=== PATIENT | male | born 1985 | race Caucasian/White ===

== ENCOUNTER 2019-11-03 20:53 | Outpatient (CLI) | payer SELFPAY | END 2019-11-03 23:59 | disposition EMS.NT | LOC: EMS 20:53 | PROVIDERS: ATTEND Surgery | DX: R09.89 Other specified symptoms and signs involving the circulatory and respiratory systems (principal); R41.82 Altered mental status, unspecified ==

== ENCOUNTER 2019-11-20 09:48 | Emergency (ER) | payer MEDICAID ==
--- NOTE | 2019-11-20 10:29 | XRAY Report ---
Reason: Trauma Procedure Date: 11/20/2019 Accession Number: [id number] / [id number] Procedure: XR - Hand 3 View RT CPT Code: Final Report FULL RESULT: EXAM: RIGHT HAND RADIOGRAPHY EXAM DATE: 11/20/2019 10:18 AM. CLINICAL HISTORY: Hand pain post trauma. COMPARISON: None. TECHNIQUE: 4 views. FINDINGS: Bones: There is a transverse fracture involving the head of the fifth metacarpal. There is mild dorsal angulation noted. Joints: Normal. No subluxations. Soft Tissues: Antithenar soft-tissue swelling noted. IMPRESSION: Transverse fracture involving the head of the fifth metacarpal with mild dorsal angulation and overlying soft tissue swelling. RADIA
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
[2019-11-20 10:43] VITALS: BP 129/83
== END 2019-11-20 10:44 | disposition home or self-care (01) ==
LOC: ED 09:48
DX: S62.396A Other fracture of fifth metacarpal bone, right hand, initial encounter for closed fracture (principal); W22.01XA Walked into wall, initial encounter; Y93.89 Activity, other specified; Y92.003 Bedroom of unspecified non-institutional (private) residence as the place of occurrence of the external cause; F17.200 Nicotine dependence, unspecified, uncomplicated
CPT/HCPCS: 29125; 99283

== ENCOUNTER 2022-05-30 09:38 | Emergency (ER) | payer MEDICAID ==
--- NOTE | 2022-05-30 09:50 | ED Physician Documentation ---
PD HPI ALTERED MENTAL STATUS - Stated complaint Stated Complaint: AMS - Chief complaint Chief Complaint: Neuro - History obtained from History obtained from: Patient - History of Present Illness Timing - onset: Yesterday Timing - duration: Days Timing - details: Gradual onset, Still present Quality / character: Confused Associated symptoms: No: Fever, Headache, Stiff neck, Cough Contributing factors: Substance abuse (history of alcoholism.) Basline status: Alert and oriented X 3, Independent Similar symptoms before: Diagnosis (has had alcohol withdrawal in the past. Not hospitalized previously per patient.) Recently seen: Emergency Dept (Yesterday at [facility], with labs done. Mag, K, and multivits scripts. no meds for withdrawal. Unclear Dx (looked up Epic everywhere and did not find pt - but he had his discharge papers with lab results).) Review of Systems Constitutional: denies: Fever Nose: denies: Rhinorrhea / runny nose, Congestion Throat: denies: Sore throat Respiratory: denies: Cough GI: reports: Nausea. denies: Abdominal Pain, Vomiting, Diarrhea Skin: denies: Rash, Lesions Neurologic: denies: Focal weakness, Numbness, Near syncope, Headache, Head injury Psychiatric: denies: Depressed, Suicidal PD PAST MEDICAL HISTORY - Past Medical History Cardiovascular: None Respiratory: None Neuro: None Endocrine/Autoimmune: None GI: Ulcers : None HEENT: None Psych: None Musculoskeletal: None Derm: None - Past Surgical History Past Surgical History: Yes Ortho: Other - Present Medications Home Medications: Ambulatory Orders Medication Instructions Recorded Confirmed Famotidine [Pepcid] 20 mg PO DAILY #20 tablet 05/30/22 LORazepam [Ativan] 1 mg PO Q6H PRN #25 tablet 05/30/22 Ondansetron Odt [Zofran] 4 mg TL Q6H PRN #10 tablet 05/30/22 - Allergies Allergies/Adverse Reactions: Allergies Allergy/AdvReac Type Severity Reaction Status Date / Time acetaminophen [From Vicodin] Allergy Itching Verified 05/30/22 09:47 amoxicillin Allergy Itching Verified 05/30/22 09:47 hydrocodone [From Vicodin] Allergy Itching Verified 05/30/22 09:47 - Social History Does the pt smoke?: Yes Smoking Status: Current every day smoker Does the pt drink ETOH?: Yes ETOH Use: Other (regular alcohol use. Detox program for a month, a few years ago. Has withdrawal symptoms if no alcohol after 1-2 days recently. ) Does the pt have substance abuse?: No - Immunizations Immunizations are current?: No Immunizations: TDAP >10years/unknown - POLST Patient has POLST: No PD ED PE NORMAL - Vitals Vital signs reviewed: Yes - General General: Alert and oriented X 3, Well developed/nourished, Other (shaky, with some tremor, some picking at the air with apparent visual hallucinations. Tachycardic. No vomiting. ) - HEENT HEENT: Pharynx benign - Neck Neck: Supple, no meningeal sign, No adenopathy - Cardiac Cardiac: No murmur. No: RRR (tachycardic) - Respiratory Respiratory: No respiratory distress, Clear bilaterally - Abdomen Abdomen: Soft, Non tender - Derm Derm: Normal color, Warm and dry - Neuro Neuro: Alert and oriented X 3, No motor deficit, Normal speech Results - Vitals Vitals: Vital Signs - 24 hr 05/30/22 05/30/22 05/30/22 09:41 11:07 13:00 Temperature 36.4 C L Heart Rate 141 H 99 112 H Respiratory 16 24 20 Rate Blood Pressure 99/83 H 130/87 H 140/105 H O2 Saturation 97 100 100 05/30/22 05/30/22 14:29 17:00 Temperature Heart Rate 93 91 Respiratory 18 21 Rate Blood Pressure 125/74 121/88 H O2 Saturation 93 100 Oxygen O2 Source Room air - Labs Labs: Laboratory Tests 05/30/22 05/30/22 05/30/22 10:39 10:39 10:39 WBC 6.7 RBC 3.68 L Hgb 12.7 L Hct 36.7 L MCV 99.7 H MCH 34.5 H MCHC 34.6 RDW 12.7 Plt Count 129 L MPV 10.5 Neut # (Auto) 4.9 Lymph # (Auto) 0.8 L [place] # (Auto) 0.9 Eos # (Auto) 0.0 Baso # (Auto) 0.0 Absolute Nucleated RBC 0.00 Nucleated RBC % 0.0 Sodium 133 L Potassium 2.8 L Chloride 89 L Carbon Dioxide 28 Anion Gap 16.0 H BUN 26 H Creatinine 0.9 Estimated GFR (MDRD) 95 Glucose 93 Calcium 10.9 H Magnesium 1.8 Total Bilirubin 1.5 H AST 142 H ALT 134 H Alkaline Phosphatase 70 Ammonia Total Protein 8.5 H Albumin 5.1 Globulin 3.4 Albumin/Globulin Ratio 1.5 Lipase 43 TSH 0.93 Urine Opiates Screen Ur Oxycodone Screen Urine Methadone Screen Ur Propoxyphene Screen Ur Barbiturates Screen Ur Tricyclics Screen Ur Phencyclidine Scrn Ur Amphetamine Screen U Methamphetamines Scrn U Benzodiazepines Scrn Urine Cocaine Screen U Cannabinoids Screen Ethyl Alcohol < 5.0 SARS-CoV-2 (PCR) 05/30/22 05/30/22 05/30/22 10:39 11:10 13:56 WBC RBC Hgb Hct MCV MCH MCHC RDW Plt Count MPV Neut # (Auto) Lymph # (Auto) [place] # (Auto) Eos # (Auto) Baso # (Auto) Absolute Nucleated RBC Nucleated RBC % Sodium Potassium Chloride Carbon Dioxide Anion Gap BUN Creatinine Estimated GFR (MDRD) Glucose Calcium Magnesium Total Bilirubin AST ALT Alkaline Phosphatase Ammonia 13.6 Total Protein Albumin Globulin Albumin/Globulin Ratio Lipase TSH Urine Opiates Screen NEGATIVE Ur Oxycodone Screen NEGATIVE Urine Methadone Screen NEGATIVE Ur Propoxyphene Screen NEGATIVE Ur Barbiturates Screen POSITIVE H Ur Tricyclics Screen NEGATIVE Ur Phencyclidine Scrn NEGATIVE Ur Amphetamine Screen NEGATIVE U Methamphetamines Scrn NEGATIVE U Benzodiazepines Scrn NEGATIVE Urine Cocaine Screen NEGATIVE U Cannabinoids Screen NEGATIVE Ethyl Alcohol SARS-CoV-2 (PCR) NOT DETECTED PD MEDICAL DECISION MAKING - ED course Complexity details: re-evaluated patient (The patient was actually having increased hallucinations and agitation and shakiness after the first doses of medication. However still seem like withdrawal. We will repeat doses.), considered differential (He appears to be in alcohol withdrawal with shakiness tachycardia and some visual hallucinations. He is still able answer questions for me though. We can treat for withdrawal. Consult social work regarding detox.), d/w patient, d/w retail consultant (fruit farmworker Billie says no beds available at [facility], but [facility] and [facility] do have beds.) ED course: The patient did subsequently become calmer after repeat medication doses for alcohol withdrawal. U tox was obtained and showed just a barbiturate which he had already received from us here in the ER. He remains somnolent at this point but good respirations and oxygenation. We will await him waking up enough to be able to talk with one of the detox centers for a phone interview. At the end of my shift, will leave care to the subsequent ER physician. Anticipated course at this point would be him awakening enough for phone interview with [facility] and hopefully facilitate transportation there. His father had been here and likely could give him a ride to that. Obviously prescriptions for withdrawal. Departure - Departure Clinical Impression: Alcohol withdrawal delirium, acute, hyperactive, Alcoholism Condition: Stable Record reviewed to determine appropriate education?: Yes Prescriptions: LORazepam [Ativan] 1 mg PO Q6H PRN #25 tablet PRN Reason: Alcohol Withdrawal Famotidine [Pepcid] 20 mg PO DAILY #20 tablet Ondansetron Odt [Zofran] 4 mg TL Q6H PRN #10 tablet PRN Reason: Nausea / Vomiting
[2022-05-30] MEDS ORDERED: PHENobarbital 65 MG/ML VIAL IV STA (10:16)
[2022-05-30] MEDS ORDERED: SODIUM CHLORIDE 0.9% 1,000 ML IV STA ×2 (10:16→11:37)
[2022-05-30] MEDS ORDERED: MAGNESIUM SULFATE 2 GRAM 2 GM/50 ML BAG IV ONE (10:17)
[2022-05-30] MEDS ORDERED: POTASSIUM CHLOR 10 MEQ/100 ML 10 MEQ/100 ML BAG IV STA (10:17)
[2022-05-30 10:50] LABS: BASOPHILS % (AUTO) 0.4 %; EOSINOPHILS % (AUTO) 0.3 %; HCT - HEMATOCRIT 36.7 % (42.0-52.0); HGB - HEMOGLOBIN 12.7 g/dL (14.0-18.0); LYMPHOCYTES # (AUTO) 0.8 10^3/uL (1.5-3.5); LYMPHOCYTES % (AUTO) 11.4 %; MEAN CORPUSCULAR HEMOGLOBIN 34.5 pg (27.0-31.0); MEAN CORPUSCULAR HGB CONC 34.6 g/dL (32.0-36.0); MEAN CORPUSCULAR VOLUME 99.7 fL (80.0-94.0); MEAN PLATELET VOLUME 10.5 fL (7.4-11.4); MONOCYTES # (AUTO) 0.9 10^3/uL (0.0-1.0); MONOCYTES % (AUTO) 13.9 %; NEUTROPHILS # (AUTO) 4.9 10^3/uL (1.5-6.6); NEUTROPHILS % (AUTO) 73.6 %; PLT - PLATELET COUNT 129 10^3/uL (130-450); RED BLOOD COUNT 3.68 10^6/uL (4.70-6.10); RED CELL DISTRIBUTION WIDTH 12.7 % (12.0-15.0); WHITE BLOOD COUNT 6.7 x10^3/uL (4.8-10.8)
[2022-05-30 11:02] LABS: ALBUMIN 5.1 g/dL (3.2-5.5); ALBUMIN/GLOBULIN RATIO 1.5 (1.0-2.2); ALKALINE PHOSPHATASE 70 IU/L (42-121); ALT ALANINE AMINOTRANSFERASE 134 IU/L (10-60); AST ASPARTATE AMINOTRANSFERASE 142 IU/L (10-42); BILIRUBIN,TOTAL 1.5 mg/dL (0.2-1.0); BUN - BLOOD UREA NITROGEN 26 mg/dL (6-20); CALCIUM 10.9 mg/dL (8.5-10.3); CARBON DIOXIDE - CO2 28 mmol/L (21-32); CHLORIDE 89 mmol/L (101-111); CREATININE 0.9 mg/dL (0.6-1.2); ETOH - ETHANOL < 5.0 mg/dL; GFR - MDRD 95 (>89); GLUCOSE 93 mg/dL (70-100); LIPASE 43 U/L (22-51); MAGNESIUM 1.8 mg/dL (1.7-2.8); POTASSIUM 2.8 mmol/L (3.5-5.0); SODIUM 133 mmol/L (135-145); TOTAL PROTEIN 8.5 g/dL (6.7-8.2)
[2022-05-30] MEDS ORDERED: THIAMINE INJ 100 MG in SODIUM CHLORIDE 0.9% 50 ML IV STA (11:38)
[2022-05-30] MEDS ORDERED: LORazepam 2 MG/ML VIAL IVP STA ×3 (11:38→12:34)
[2022-05-30] MEDS ORDERED: DROPERIDOL 5 MG/2 ML VIAL IVP STA (12:50)
[2022-05-30] MEDS ORDERED: diphenhydrAMINE INJ 50 MG/ML VIAL IVP STA (12:51)
[2022-05-30 14:06] LABS: MUDS CUTOFF CONCENTRATIONS CUTOFF CONC BELOW:
--- NOTE | 2022-05-30 14:10 | ED Physician Documentation ---
Restraint [id number] - Immediate Situation Face to Face Evaluation Date: 05/30/22 Face to Face Evaluation Time: 14:08 Restraint Type: Soft extremity - Patient's Reaction & Behaviors Other: Disruption of therapy - Behavioral Condition Attitude: Open Behavior: Agitated Orientation: Person Mood: Anxious - Evaluation Review of Systems: see ED note Pertinent History/Illicit Drugs/Medications/Results: alcohol withdrawal with agitation and hallucinations - Plan Need to Continue or Terminate Violent or Chemical Restraint: until medications are able to calm patient/decrease withdrawal.
[2022-05-30 14:24] LABS: AMPHETAMINE SCREEN,URINE NEGATIVE (NEGATIVE); BARBITURATE SCREEN,UR POSITIVE (NEGATIVE); BENZODIAZEPINES SCREEN, URINE NEGATIVE (NEGATIVE); COCAINE SCREEN URINE NEGATIVE (NEGATIVE); METHADONE SCREEN, URINE NEGATIVE (NEGATIVE); METHAMPHETAMINES SCREEN, URINE NEGATIVE (NEGATIVE); OPIATE SCREEN, URINE NEGATIVE (NEGATIVE); OXYCODONE SCREEN, URINE NEGATIVE (NEGATIVE); PROPOXYPHENE SCREEN, URINE NEGATIVE (NEGATIVE); THC CANNABINOID SCREEN, URINE NEGATIVE (NEGATIVE); TRICYCLIC ANTIDEPRESSANT,URINE NEGATIVE (NEGATIVE)
[2022-05-31 04:04] VITALS: BP 135/71
--- NOTE | 2022-05-31 08:42 | ED Physician Documentation ---
ED Addendum - Addendum Addendum: 05/31/22 08:39 I received sign out from Dr. Chaidez, who had received sign out from Dr. Javier. Please see Dr. Javier's note for detailed H+P. Late in my shift, patient became awake and alert. He is angry though not combative or uncooperative. He insists on being discharged. He denies SI/HI. He denies AH/VH and does not appear to be responding to any internal stimuli such as AH/VH. I asked him if he is interested in pursuing detox and he strongly refuses this. I provided several options in his discharge sheets along with contact phone numbers.
== END 2022-05-31 04:10 | disposition home or self-care (01) ==
LOC: ED 09:38
DX: F10.231 Alcohol dependence with withdrawal delirium (principal); F10.251 Alcohol dependence with alcohol-induced psychotic disorder with hallucinations; R11.0 Nausea; R25.1 Tremor, unspecified; R00.0 Tachycardia, unspecified; F17.200 Nicotine dependence, unspecified, uncomplicated
CPT/HCPCS: 36415; 80053; 80306; 80320; 82140; 83690; 83735; 84443; 85025; 87635; 96365; 96367; 96375; 96376; 99283; J1200; J2060; J3411; J7040

== ENCOUNTER 2022-09-09 09:15 | Emergency (ER) | payer MEDICAID ==
--- NOTE | 2022-09-09 09:35 | ED Physician Documentation ---
PD HPI ABD PAIN - Stated complaint Stated Complaint: L SIDE BACK PX/NAUSEA - Chief complaint Chief Complaint: Abd Pain - History obtained from History obtained from: Patient - History of Present Illness Timing - onset: Yesterday Timing - duration: Days (1) Timing - details: Gradual onset, Still present (significantly worse today) Quality: Cramping, Aching, Pain Location: LUQ Radiation: Left flank Improved by: Laying still. No: Vomiting Worsened by: Eating Associated symptoms: Nausea, Vomiting. No: Fever, Diarrhea, Constipation, Melena Similar symptoms before: Has not had sx before Review of Systems Constitutional: denies: Fever, Chills Nose: denies: Rhinorrhea / runny nose, Congestion Throat: denies: Sore throat Respiratory: denies: Cough GI: reports: Abdominal Pain, Nausea, Vomiting. denies: Constipation, Diarrhea, Bloody / black stool Neurologic: reports: Generalized weakness. denies: Altered mental status PD PAST MEDICAL HISTORY - Past Medical History Cardiovascular: None Respiratory: None Neuro: None Endocrine/Autoimmune: None GI: Ulcers : None HEENT: None Psych: None Musculoskeletal: None Derm: None - Past Surgical History Past Surgical History: Yes Ortho: Other - Present Medications Home Medications: Ambulatory Orders Medication Instructions Recorded Confirmed Famotidine [Pepcid] 20 mg PO DAILY #20 tablet 05/30/22 LORazepam [Ativan] 1 mg PO Q6H PRN #25 tablet 05/30/22 Ondansetron Odt [Zofran] 4 mg TL Q6H PRN #10 tablet 05/30/22 LORazepam [Ativan] 1 mg PO Q6H PRN #25 tablet 09/09/22 Ondansetron Odt [Zofran] 4 mg TL Q6H PRN #10 tablet 09/09/22 Oxycodone HCl/Acetaminophen 1 each PO Q6H PRN #15 tablet 09/09/22 [Percocet 5-325 mg Tablet] cephALEXin [Keflex] 500 mg PO TID #15 cap 09/09/22 metroNIDAZOLE [Flagyl] 250 mg PO TID 5 Days #15 tablet 09/09/22 - Allergies Allergies/Adverse Reactions: Allergies Allergy/AdvReac Type Severity Reaction Status Date / Time acetaminophen [From Vicodin] Allergy Itching Verified 09/09/22 09:27 amoxicillin Allergy Itching Verified 09/09/22 09:27 hydrocodone [From Vicodin] Allergy Itching Verified 09/09/22 09:27 - Living Situation Living Arrangement: reports: At home - Social History Does the pt smoke?: Yes Smoking Status: Current every day smoker Does the pt drink ETOH?: Yes ETOH Use: Other (daily moderate amount) Does the pt have substance abuse?: No - Immunizations Immunizations are current?: No Immunizations: TDAP >10years/unknown - POLST Patient has POLST: No PD ED PE NORMAL - Vitals Vital signs reviewed: Yes - General General: Alert and oriented X 3, Well developed/nourished, Other (appears uncomfortable. Attempting vomiting during interaction. ) - Neck Neck: Supple, no meningeal sign, No adenopathy - Cardiac Cardiac: RRR (regular but tachycardic), No murmur - Respiratory Respiratory: Clear bilaterally - Abdomen Abdomen: Normal bowel sounds, Soft, Non distended, No organomegaly, Other (left upper to mid abd pain with guarding and some local percussion tenderness. No rebound. ) - Rectal Rectal: Deferred - Back Back: No CVA TTP - Derm Derm: Normal color, Warm and dry - Extremities Extremities: No edema, No calf tenderness / cord - Neuro Neuro: Alert and oriented X 3, No motor deficit, Normal speech Results - Vitals Vitals: Vital Signs - 24 hr 09/09/22 14:27 Heart Rate 99 Respiratory 18 Rate Blood Pressure 141/95 H O2 Saturation 98 Oxygen O2 Source Room air - Labs Labs: Laboratory Tests 09/09/22 09/09/22 09/09/22 09:52 09:52 11:19 WBC 7.0 RBC 4.62 L Hgb 14.5 Hct 43.1 MCV 93.3 MCH 31.4 H MCHC 33.6 RDW 11.9 L Plt Count 255 MPV 9.0 Neut # (Auto) 5.5 Lymph # (Auto) 0.9 L [place] # (Auto) 0.6 Eos # (Auto) 0.1 Baso # (Auto) 0.0 Absolute Nucleated RBC 0.00 Nucleated RBC % 0.0 Sodium 132 L Potassium 3.7 Chloride 90 L Carbon Dioxide 24 Anion Gap 18.0 H BUN 12 Creatinine 0.8 Estimated GFR (MDRD) 109 Glucose 222 H Calcium 9.0 Total Bilirubin 1.0 AST 96 H ALT 70 H Alkaline Phosphatase 67 Total Protein 7.7 Albumin 4.3 Globulin 3.4 Albumin/Globulin Ratio 1.3 Lipase 35 Urine Color DARK YELLOW Urine Clarity CLEAR Urine pH 6.0 Ur Specific [place] 1.025 Urine Protein 30 H Urine Glucose (UA) NEGATIVE Urine Ketones 40 H Urine Occult Blood MODERATE H Urine Nitrite NEGATIVE Urine Bilirubin NEGATIVE Urine Urobilinogen 0.2 (NORMAL) Ur Leukocyte Esterase NEGATIVE Urine RBC 0-5 Urine WBC 0-3 Ur Squamous Epith Cells RARE Squamous Urine Bacteria Few Ur Microscopic Review INDICATED Urine Culture Comments NOT INDICATED Ethyl Alcohol 225.8 - Rads (name of study) abd/pelvic cT Radiology: Prelim report reviewed (descending colon segment with wall thickening and inflammation c/w colitis. ), See rad report PD Medical Decision Making - ED course Complexity details: reviewed results (ct showing descending colon area of colitis. Given the localized area and symptoms, would presume bacterial colitis. No history of IBD/UC/Crohns. No noted unusual foods. ), re-evaluated patient (improved pain and vomiting after meds. Still some tender. able to keep down fluids. ), considered differential (left sided abd pain with vomiting. Consider kidney stone, colitis, splenic process. Not tender on right. ), d/w patient Reviewed Lab Results: wbc is in normal range. Sodium slightly low 132. His alcohol level is elevated and he is alert and conversant corresponding to his reported regular alcohol intake and apparent tolerance. Presume he would get into some withdrawal if not able to take po well (includes alcohol intake). So I will give script for withdrawal if needed. He does state he does not able to go more than a day without getting withdrawal. He declines desire for Social Work to help with detox. Social Determinants of Health: alcoholism but current symptoms and findings do not seem to be caused by that, but he will develop some withdrawal if PO is not improved. Drug Therapy Requiring Monitoring for Toxicity: he is given IV fluids, antiemetics and pain meds here in eD without untoward side effects. tolerated okay and is improved. Departure - Departure Disposition: 01 Home, Self Care Clinical Impression: Left sided abdominal pain, Colitis, Alcohol use disorder Condition: Stable Record reviewed to determine appropriate education?: Yes Instructions: ED Diverticulitis Follow-Up: [facility] [place] [Provider Group] [facility] [place] [Provider Group] Prescriptions: LORazepam [Ativan] 1 mg PO Q6H PRN #25 tablet PRN Reason: Alcohol Withdrawal metroNIDAZOLE [Flagyl] 250 mg PO TID 5 Days #15 tablet cephALEXin [Keflex] 500 mg PO TID #15 cap Oxycodone HCl/Acetaminophen [Percocet 5-325 mg Tablet] 1 each PO Q6H PRN #15 tablet PRN Reason: pain Ondansetron Odt [Zofran] 4 mg TL Q6H PRN #10 tablet PRN Reason: Nausea / Vomiting Comments: You do have inflammation of part of the colon on the left side of the abdomen corresponding to the area of your pain. Given the localized area of it, I would be presuming it is a bacterial type infection (bacterial colitis) and we treated with cephalexin and metronidazole antibiotics 3 times daily for 5 days. Stay well-hydrated and bland food and soft food over the next few days. Use Tylenol or ibuprofen as needed for pains. Add Percocet every 6 hours if needed for worse pain. Add ondansetron if needed for nausea. Given fairly regular alcohol use, if you are unable to drink well or such or not having alcohol then you are likely to have some withdrawal symptoms. I prescribed lorazepam to use every 6-8 hours if needed for withdrawal type symptoms. I sent the prescriptions to the [facility] pharmacy in [place]. See how you do over the next couple of days. Return if not improved well during that time or worsening despite the above medications. I am prescribing a short course of narcotic pain medication for you. These are potentially dangerous and addictive medications that should be used carefully. These medications may constipate you. Take an [id number] stool softener such as docusate twice daily with plenty of water while taking these medications. If you go 24 hours without a bowel movement, take [id number] MiraLAX, per package instructions. Do not drink or drive while taking these medications. If you received narcotic or sedating medications while in the emergency department do not drive for 24 hours. Store this medication in a safe, secure place and out of reach of children. It is a violation of federal law to give or sell this medication to another person or to use in a manner other than prescribed. The ED will not refill narcotic prescriptions, including prescriptions lost or stolen. You can dispose of unwanted medications at the [facility]'s office or at several pharmacies such as [facility]. Discharge Date/Time: 09/09/22 14:28
[2022-09-09] MEDS ORDERED: HYDROmorphone 1 MG/ML CARPUJECT IVP STA ×2 (09:45→12:24)
[2022-09-09] MEDS ORDERED: SODIUM CHLORIDE 0.9% 1,000 ML IV STA (09:45)
[2022-09-09] MEDS ORDERED: ONDANSETRON 4 MG/2 ML VIAL IVP STA (09:45)
[2022-09-09] MEDS ORDERED: KETOROLAC 15 MG/ML VIAL IVP STA (09:45)
[2022-09-09 09:57] LABS: BASOPHILS % (AUTO) 0.4 %; EOSINOPHILS # (AUTO) 0.1 10^3/uL (0.0-0.7); EOSINOPHILS % (AUTO) 0.7 %; HCT - HEMATOCRIT 43.1 % (42.0-52.0); HGB - HEMOGLOBIN 14.5 g/dL (14.0-18.0); LYMPHOCYTES # (AUTO) 0.9 10^3/uL (1.5-3.5); LYMPHOCYTES % (AUTO) 12.4 %; MEAN CORPUSCULAR HEMOGLOBIN 31.4 pg (27.0-31.0); MEAN CORPUSCULAR HGB CONC 33.6 g/dL (32.0-36.0); MEAN CORPUSCULAR VOLUME 93.3 fL (80.0-94.0); MONOCYTES # (AUTO) 0.6 10^3/uL (0.0-1.0); MONOCYTES % (AUTO) 8.7 %; NEUTROPHILS # (AUTO) 5.5 10^3/uL (1.5-6.6); NEUTROPHILS % (AUTO) 77.5 %; PLT - PLATELET COUNT 255 10^3/uL (130-450); RED BLOOD COUNT 4.62 10^6/uL (4.70-6.10); RED CELL DISTRIBUTION WIDTH 11.9 % (12.0-15.0)
[2022-09-09] MEDS ORDERED: iohexoL-300 100 ML VIAL ONE (10:02)
[2022-09-09 10:09] LABS: ALBUMIN 4.3 g/dL (3.2-5.5); ALBUMIN/GLOBULIN RATIO 1.3 (1.0-2.2); CREATININE 0.8 mg/dL (0.6-1.2); ETOH - ETHANOL 225.8 mg/dL; POTASSIUM 3.7 mmol/L (3.5-5.0); TOTAL PROTEIN 7.7 g/dL (6.7-8.2)
[2022-09-09 11:26] LABS: BILIRUBIN,URINE NEGATIVE (NEGATIVE); CLARITY,URINE CLEAR (CLEAR); GLUCOSE, URINE (UA) NEGATIVE (NEGATIVE); KETONES,URINE (UA) 40 mg/dL (NEGATIVE); LEUKOCYTE ESTERASE, URINE NEGATIVE (NEGATIVE); NITRITE,URINE NEGATIVE (NEGATIVE); OCCULT BLOOD,URINE MODERATE (NEGATIVE); PROTEIN,URINE 30 mg/dL (NEGATIVE); UROBILINOGEN,URINE 0.2 (NORMAL) E.U./dL (NORMAL)
--- NOTE | 2022-09-09 11:27 | CT Report ---
PROCEDURE: ABDOMEN/PELVIS W INDICATIONS: LLQ Abdominal pain, diverticulitis suspected CONTRAST: 100 TECHNIQUE: After the administration of IV contrast, 5 mm thick sections acquired from the diaphragms to the symp hysis. 5 mm thick coronal and sagittal reformats were acquired. For radiation dose reduction, the f ollowing was used: automated exposure control, adjustment of mA and/or kV according to patient size. COMPARISON: None. FINDINGS: Image quality: Excellent. ABDOMEN: Lung bases: Lung bases are clear. Heart size is normal. Solid organs: Liver is enlarged measuring 23 cm with diffuse steatosis. The spleen is normal in size and enhancement. Gallbladder is unremarkable Biliary system is non dilated. Pancreas enhances nor dar. No adrenal nodules. Kidneys demonstrate normal size and enhancement, without hydronephrosis. Peritoneum and bowel: Bowel loops are nonobstructed. There is a very minimal appearance of thickenin g and pericolonic inflammatory change with a focus of descending colon in the left lower quadrant on series 3 image 71.. No free fluid or air. Nodes and vessels: No retroperitoneal or mesenteric adenopathy by size criteria. Aorta and inferior vena cava are normal in size. Miscellaneous: No ventral hernias. PELVIS: Genitourinary: Bladder wall thickness is normal. Miscellaneous: No inguinal hernias or adenopathy. Bones: No suspicious bony lesions. No vertebral body compression fractures. IMPRESSION: Normal appearance of possible developing colitis within a focal loop of the descending colon. Reviewed by: Clary Paz MD on 09/09/2022 11:25 AM PST Approved by: Clary Paz MD on 09/09/2022 11:25 AM PST Station ID: [id number]
[2022-09-09 11:39] LABS: BACTERIA,URINE Few /HPF (None Seen); RBC,URINE 0-5 /HPF (0-5); SQUAMOUS EPITHELIAL CELL,UR RARE Squamous (<= Few); WBC,URINE 0-3 /HPF (0-3)
[2022-09-09] MEDS ORDERED: iohexoL-300 100 ML VIAL IVP ONE (11:39)
[2022-09-09] MEDS ORDERED: DROPERIDOL 5 MG/2 ML VIAL IVP STA (12:24)
[2022-09-09] MEDS ORDERED: cefTRIAXone 1 GM VIAL IVP STA (12:24)
[2022-09-09] MEDS ORDERED: metroNIDAZOLE 250 MG TABLET PO STA (14:12)
[2022-09-09 14:28] VITALS: BP 141/95
== END 2022-09-09 14:28 | disposition home or self-care (01) ==
LOC: ED 09:15
DX: K52.9 Noninfective gastroenteritis and colitis, unspecified (principal); F10.10 Alcohol abuse, uncomplicated; Y90.7 Blood alcohol level of 200-239 mg/100 ml; F17.200 Nicotine dependence, unspecified, uncomplicated; Z79.899 Other long term (current) drug therapy
CPT/HCPCS: 36415; 74177; 80053; 80320; 81001; 83690; 85025; 96374; 96375; 96376; 99283; 99285; A9270; J1170; Q9967; 81003; 87086

== ENCOUNTER 2022-09-27 21:57 | Outpatient (CLI) | payer MEDICAID | END 2022-09-27 21:58 | disposition critical access hospital (66) | LOC: EMS 21:57 | DX: R40.1 Stupor (principal); R11.0 Nausea; M79.622 Pain in left upper arm; M79.621 Pain in right upper arm; S00.81XA Abrasion of other part of head, initial encounter; W19.XXXA Unspecified fall, initial encounter; Z72.89 Other problems related to lifestyle | CPT/HCPCS: A0425; A0429; A0999 ==

== ENCOUNTER 2022-11-30 08:00 | Outpatient (CLI) | payer MEDICAID, OTHER ==
[2022-11-30 15:04] LABS: BASOPHILS # (AUTO) 0.1 10^3/uL (0.0-0.1); BASOPHILS % (AUTO) 1.1 %; EOSINOPHILS # (AUTO) 0.1 10^3/uL (0.0-0.7); HCT - HEMATOCRIT 42.9 % (42.0-52.0); HGB - HEMOGLOBIN 13.9 g/dL (14.0-18.0); LYMPHOCYTES # (AUTO) 2.6 10^3/uL (1.5-3.5); LYMPHOCYTES % (AUTO) 39.8 %; MEAN CORPUSCULAR HEMOGLOBIN 32.9 pg (27.0-31.0); MEAN CORPUSCULAR HGB CONC 32.4 g/dL (32.0-36.0); MEAN CORPUSCULAR VOLUME 101.4 fL (80.0-94.0); MEAN PLATELET VOLUME 9.9 fL (7.4-11.4); MONOCYTES # (AUTO) 0.8 10^3/uL (0.0-1.0); MONOCYTES % (AUTO) 12.4 %; NEUTROPHILS # (AUTO) 2.9 10^3/uL (1.5-6.6); NEUTROPHILS % (AUTO) 44.5 %; PLT - PLATELET COUNT 389 10^3/uL (130-450); RED BLOOD COUNT 4.23 10^6/uL (4.70-6.10); WHITE BLOOD COUNT 6.6 x10^3/uL (4.8-10.8)
[2022-11-30 15:13] LABS: ALBUMIN 4.3 g/dL (3.2-5.5); ALBUMIN/GLOBULIN RATIO 1.5 (1.0-2.2); BILIRUBIN,TOTAL 0.6 mg/dL (0.2-1.0); CALCIUM 9.9 mg/dL (8.5-10.3); CREATININE 0.9 mg/dL (0.6-1.2); POTASSIUM 3.9 mmol/L (3.5-5.0); TOTAL PROTEIN 7.2 g/dL (6.7-8.2)
== END 2022-11-30 23:59 | disposition home or self-care (01) ==
LOC: LAB.R 08:00
PROVIDERS: ATTEND Registered Nurse
DX: R68.89 Other general symptoms and signs (principal); Z13.228 Encounter for screening for other metabolic disorders
CPT/HCPCS: 80053; 85025

== ENCOUNTER 2023-11-18 11:13 | Outpatient (CLI) | payer MEDICAID ==
[2023-11-18 14:44] LABS: BASOPHILS # (AUTO) 0.1 10^3/uL (0.0-0.1); BASOPHILS % (AUTO) 0.7 %; EOSINOPHILS # (AUTO) 0.1 10^3/uL (0.0-0.7); EOSINOPHILS % (AUTO) 0.7 %; HCT - HEMATOCRIT 38.6 % (42.0-52.0); HGB - HEMOGLOBIN 12.7 g/dL (14.0-18.0); LYMPHOCYTES # (AUTO) 3.2 10^3/uL (1.5-3.5); LYMPHOCYTES % (AUTO) 45.5 %; MEAN CORPUSCULAR HEMOGLOBIN 30.2 pg (27.0-31.0); MEAN CORPUSCULAR HGB CONC 32.9 g/dL (32.0-36.0); MEAN CORPUSCULAR VOLUME 91.9 fL (80.0-94.0); MEAN PLATELET VOLUME 9.3 fL (7.4-11.4); MONOCYTES # (AUTO) 0.7 10^3/uL (0.0-1.0); MONOCYTES % (AUTO) 10.1 %; PLT - PLATELET COUNT 317 10^3/uL (130-450); RED CELL DISTRIBUTION WIDTH 13.6 % (12.0-15.0); WHITE BLOOD COUNT 6.9 x10^3/uL (4.8-10.8)
[2023-11-18 15:10] LABS: ALBUMIN 4.4 g/dL (3.2-5.5); ALBUMIN/GLOBULIN RATIO 1.6 (1.0-2.2); ALKALINE PHOSPHATASE 85 IU/L (42-121); ALT ALANINE AMINOTRANSFERASE 14 IU/L (10-60); AST ASPARTATE AMINOTRANSFERASE 28 IU/L (10-42); BILIRUBIN,TOTAL 0.6 mg/dL (0.2-1.0); BUN - BLOOD UREA NITROGEN 17 mg/dL (6-20); CALCIUM 9.6 mg/dL (8.5-10.3); CARBON DIOXIDE - CO2 25 mmol/L (21-32); CHLORIDE 97 mmol/L (101-111); CHOL/HDL RATIO 2.1 (<5.0); CHOLESTEROL 199 mg/dL; CREATININE 0.8 mg/dL (0.6-1.3); GFR - MDRD 108 (>89); GLUCOSE 99 mg/dL (74-104); HDL CHOLESTEROL 94 mg/dL; LDL CHOLESTEROL,CALCULATED 26 mg/dL; LDL/HDL RATIO 0.3 (<3.6); POTASSIUM 3.7 mmol/L (3.5-4.5); SODIUM 134 mmol/L (135-145); TOTAL PROTEIN 7.2 g/dL (6.4-8.9); TRIGLYCERIDES 395 mg/dL (48-352); VLDL CHOLESTEROL 79 mg/dL
[2023-11-18 15:12] LABS: THYROID STIMULATING HORMONE 1.08 uIU/mL (0.34-5.60)
== END 2023-11-18 11:14 | disposition home or self-care (01) ==
LOC: LAB.S 11:13
PROVIDERS: ATTEND Nurse Practitioner Family
DX: Z00.00 Encounter for general adult medical examination without abnormal findings (principal)
CPT/HCPCS: 36415; 80053; 80061; 83721; 84443; 85025

== ENCOUNTER 2023-12-28 10:21 | Outpatient (CLI) | payer MEDICAID ==
--- NOTE | 2023-12-28 13:24 | Ultrasound Report ---
PROCEDURE: Renal Ltd (Retroperitoneal Ltd INDICATIONS: AAA TECHNIQUE: Real time scanning was performed of the aorta and iliac arteries, with image documentatio n. COMPARISON: None. FINDINGS: Aorta: Proximal aortic diameter measures 2.1 x 2.4 cm. Mid-aorta measures 1.8 x 1.9 cm. Distal aor tic diameter is 1.9 x 2.0 cm. Iliac arteries: Right common iliac artery measures 1.2 x 1.2 cm. Left common iliac artery measures 1.1 x 1.2 cm. IMPRESSION: No abdominal aortic aneurysm. Recommended intervals for follow-up imaging of ectatic aortas and abdominal aortic aneurysms, per ACR consensus guidelines: 2.5-2.9 cm: 5 years 3.0-3.4 cm: 3 years 3.5-3.9 cm: 2 years 4.0-4.4 cm: 1 year 4.5-4.9 cm: 6 months + endovascular referral 5.0-5.5 cm: 3-6 months + endovascular referral Reviewed by: Gabino Solorzano MD on 12/28/2023 1:23 PM PDT Approved by: Gabino Solorzano MD on 12/28/2023 1:23 PM PDT Station ID: [id number]
== END 2023-12-28 10:22 | disposition home or self-care (01) ==
LOC: DI 10:21
PROVIDERS: ATTEND Nurse Practitioner Family
DX: Z86.79 Personal history of other diseases of the circulatory system (principal)

== ENCOUNTER 2024-03-27 08:24 | Outpatient (CLI) | payer MEDICAID | END 2024-03-27 23:59 | disposition critical access hospital (66) | LOC: EMS 08:24 | DX: R00.0 Tachycardia, unspecified (principal); R00.2 Palpitations; R06.02 Shortness of breath; R11.0 Nausea | CPT/HCPCS: A0425; A0427; A0999 ==

== ENCOUNTER 2024-03-27 08:45 | Emergency (ER) | payer MEDICAID ==
--- NOTE | 2024-03-27 09:02 | ED Physician Documentation ---
History of Present Illness - Stated complaint Stated Complaint: DETOX - Chief complaint Chief Complaint: Abd Pain - History obtained from History obtained from: Patient - History of Present Illness Timing: How many days ago (3) Pain level max: 0 Pain level now: 0 - Additonal information Additional information: Patient is a 38-year-old male who presents to the emergency department from [facility]. He is there for alcohol detox. drinks a fifth of vodka per day. States last drink was . He states that he was eating cereal this morning when [facility] called the ambulance for him. He states he does not know why he is here. He has no complaints. EMS states that they were told his heart rate was high so [facility] gave him oral metoprolol and called the ambulance. No medication list was sent with the patient. No MAR was sent with the patient. No additional clinical information is available. No information was sent from [facility]. PD PAST MEDICAL HISTORY - Past Medical History Cardiovascular: None Respiratory: None Neuro: None Endocrine/Autoimmune: None GI: Ulcers : None HEENT: None Psych: None Musculoskeletal: None Derm: None Other Past Medical History: ETOH abuse - Past Surgical History Past Surgical History: Yes Ortho: Other - Present Medications Home Medications: Ambulatory Orders Medication Instructions Recorded Confirmed Famotidine [Pepcid] 20 mg PO DAILY #20 tablet 05/30/22 LORazepam [Ativan] 1 mg PO Q6H PRN #25 tablet 05/30/22 Ondansetron Odt [Zofran] 4 mg TL Q6H PRN #10 tablet 05/30/22 LORazepam [Ativan] 1 mg PO Q6H PRN #25 tablet 09/09/22 Ondansetron Odt [Zofran] 4 mg TL Q6H PRN #10 tablet 09/09/22 Oxycodone HCl/Acetaminophen 1 each PO Q6H PRN #15 tablet 09/09/22 [Percocet 5-325 mg Tablet] cephALEXin [Keflex] 500 mg PO TID #15 cap 09/09/22 metroNIDAZOLE [Flagyl] 250 mg PO TID 5 Days #15 tablet 09/09/22 - Allergies Allergies/Adverse Reactions: Allergies Allergy/AdvReac Type Severity Reaction Status Date / Time hydrocodone [From Vicodin] Allergy Itching Verified 09/09/22 09:27 Penicillins Allergy Unknown Verified 03/27/24 08:56 - Social History Does the pt smoke?: No Smoking Status: Former smoker Does the pt drink ETOH?: Yes Does the pt have substance abuse?: No - Immunizations Immunizations are current?: No Immunizations: TDAP >10years/unknown - POLST Patient has POLST: No Results - Vitals Vitals: Vital Signs - 24 hr 03/27/24 03/27/24 03/27/24 08:50 10:48 12:00 Temperature 36.8 C Heart Rate 131 H 118 H 127 H Respiratory 18 20 25 H Rate Blood Pressure 93/80 151/84 H 151/70 H O2 Saturation 95 95 97 03/27/24 14:00 Temperature Heart Rate 114 H Respiratory 21 Rate Blood Pressure 137/101 H O2 Saturation 98 Oxygen O2 Source Room air - EKG (time done) 0922 EKG releavant findings:: EKG personally interpreted by author of this note. Relevant findings are: Rate: Rate (enter#) (131) Rhythm: Sinus tachycardia [place]: Normal Intervals: Normal NC QRS: Normal Ischemia: Normal ST segments - Labs Labs: Laboratory Tests 03/27/24 03/27/24 03/27/24 09:03 09:03 13:04 WBC 5.8 RBC 3.50 L Hgb 11.4 L Hct 33.0 L MCV 94.3 H MCH 32.6 H MCHC 34.5 RDW 13.4 Plt Count 130 MPV 9.6 Neut # (Auto) 4.6 Lymph # (Auto) 0.8 L [place] # (Auto) 0.5 Eos # (Auto) 0.0 Baso # (Auto) 0.0 Absolute Nucleated RBC 0.00 Nucleated RBC % 0.0 Sodium 131 L Potassium 3.2 L Chloride 95 L Carbon Dioxide 25 Anion Gap 11.0 BUN 11 Creatinine 0.7 Estimated GFR (MDRD) 126 Glucose 135 H Calcium 9.3 Magnesium 1.4 L Total Bilirubin 1.0 AST 139 H ALT 90 H Alkaline Phosphatase 48 Total Creatine Kinase 1386 H* 1198 H* Total Protein 6.4 Albumin 3.8 Globulin 2.6 Albumin/Globulin Ratio 1.5 Lipase 196 H TSH 1.21 Urine Color Urine Clarity Urine pH Ur Specific [place] Urine Protein Urine Glucose (UA) Urine Ketones Urine Occult Blood Urine Nitrite Urine Bilirubin Urine Urobilinogen Ur Leukocyte Esterase Ur Microscopic Review Urine Culture Comments Salicylates < 1.5 Urine Opiates Screen Ur Buprenorphine Scrn Ur Oxycodone Screen Urine Methadone Screen Acetaminophen < 0.1 Ur Barbiturates Screen Ur Tricyclics Screen Ur Phencyclidine Scrn Ur Amphetamine Screen U Methamphetamines Scrn U Benzodiazepines Scrn Urine Cocaine Screen U Cannabinoids Screen Ur Drug Screen Comment Ethyl Alcohol < 10.0 03/27/24 13:50 WBC RBC Hgb Hct MCV MCH MCHC RDW Plt Count MPV Neut # (Auto) Lymph # (Auto) [place] # (Auto) Eos # (Auto) Baso # (Auto) Absolute Nucleated RBC Nucleated RBC % Sodium Potassium Chloride Carbon Dioxide Anion Gap BUN Creatinine Estimated GFR (MDRD) Glucose Calcium Magnesium Total Bilirubin AST ALT Alkaline Phosphatase Total Creatine Kinase Total Protein Albumin Globulin Albumin/Globulin Ratio Lipase TSH Urine Color LIGHT YELLOW Urine Clarity CLEAR Urine pH 7.0 Ur Specific [place] 1.010 Urine Protein NEGATIVE Urine Glucose (UA) NEGATIVE Urine Ketones NEGATIVE Urine Occult Blood NEGATIVE Urine Nitrite NEGATIVE Urine Bilirubin NEGATIVE Urine Urobilinogen 0.2 (NORMAL) Ur Leukocyte Esterase NEGATIVE Ur Microscopic Review NOT INDICATED Urine Culture Comments NOT INDICATED Salicylates Urine Opiates Screen NEGATIVE Ur Buprenorphine Scrn NEGATIVE Ur Oxycodone Screen NEGATIVE Urine Methadone Screen NEGATIVE Acetaminophen Ur Barbiturates Screen NEGATIVE Ur Tricyclics Screen NEGATIVE Ur Phencyclidine Scrn NEGATIVE Ur Amphetamine Screen NEGATIVE U Methamphetamines Scrn NEGATIVE U Benzodiazepines Scrn POSITIVE H Urine Cocaine Screen NEGATIVE U Cannabinoids Screen NEGATIVE Ur Drug Screen Comment CUTOFF CONC BELOW: Ethyl Alcohol PD Medical Decision Making - ED course Complexity details: considered differential, d/w patient ED course: A call was placed to [facility] shortly after the patient's arrival to try to obtain any medical history, MAR, medication history. Patient is a 38-year-old male with alcohol withdrawal. He was given 2 mg of Ativan IV x 2, phenobarbital and a dose of Dilaudid. Heart rate decreased. Given 2 L of IV fluids. His CK was mildly elevated, decreased on repeat evaluation. Heart rate down to approximately 90-95. He feels much better. Request to go back to [facility] to finish detox. Alert, oriented x 3. [facility] is comfortable taking the patient back. Patient counseled regarding signs and symptoms for which I believe and urgent re-evaluation would be necessary. Patient with good understanding of and agreement to plan and is comfortable going home at this time This document was made in part using voice recognition software. While efforts are made to proofread this document, sound alike and grammatical errors may occur. Departure - Departure Disposition: 01 Home, Self Care Clinical Impression: Alcohol withdrawal Qualifiers: Complication of substance-induced condition: uncomplicated Qualified Code(s): F10.930 - Alcohol use, unspecified with withdrawal, uncomplicated Condition: Good Instructions: ED Withdrawal Alcohol Comments: You are cleared to go back to [facility] today. You were given IV fluids, Ativan and Dilaudid. Your heart rate has decreased. Please return to [facility] for the remainder of your detox. You should have your creatine kinase rechecked with your doctor in about a week. Make sure you are drinking plenty of water. Forms: PCP List
[2024-03-27] MEDS: SODIUM CHLORIDE 0.9% 1,000 ML IV STA ×3 (09:05→09:16)
[2024-03-27] MEDS: LORazepam 2 MG/ML VIAL IVP STA ×2 (09:08→11:53)
[2024-03-27 09:15] LABS: BASOPHILS % (AUTO) 0.2 %; EOSINOPHILS % (AUTO) 0.3 %; HGB - HEMOGLOBIN 11.4 g/dL (14.0-18.0); LYMPHOCYTES # (AUTO) 0.8 10^3/uL (1.5-3.5); LYMPHOCYTES % (AUTO) 12.9 %; MEAN CORPUSCULAR HEMOGLOBIN 32.6 pg (27.0-31.0); MEAN CORPUSCULAR HGB CONC 34.5 g/dL (32.0-36.0); MEAN CORPUSCULAR VOLUME 94.3 fL (80.0-94.0); MEAN PLATELET VOLUME 9.6 fL (7.4-11.4); MONOCYTES # (AUTO) 0.5 10^3/uL (0.0-1.0); MONOCYTES % (AUTO) 7.7 %; NEUTROPHILS # (AUTO) 4.6 10^3/uL (1.5-6.6); NEUTROPHILS % (AUTO) 78.6 %; PLT - PLATELET COUNT 130 10^3/uL (130-450); RED CELL DISTRIBUTION WIDTH 13.4 % (12.0-15.0); WHITE BLOOD COUNT 5.8 x10^3/uL (4.8-10.8)
[2024-03-27 09:26] LABS: ALBUMIN 3.8 g/dL (3.2-5.5); ALBUMIN/GLOBULIN RATIO 1.5 (1.0-2.2); ALKALINE PHOSPHATASE 48 IU/L (42-121); ALT ALANINE AMINOTRANSFERASE 90 IU/L (10-60); AST ASPARTATE AMINOTRANSFERASE 139 IU/L (10-42); BUN - BLOOD UREA NITROGEN 11 mg/dL (6-20); CALCIUM 9.3 mg/dL (8.5-10.3); CARBON DIOXIDE - CO2 25 mmol/L (21-32); CHLORIDE 95 mmol/L (101-111); CREATININE 0.7 mg/dL (0.6-1.3); ETOH - ETHANOL < 10.0 mg/dL; GFR - MDRD 126 (>89); GLUCOSE 135 mg/dL (74-104); LIPASE 196 U/L (11-82); MAGNESIUM 1.4 mg/dL (1.7-2.3); POTASSIUM 3.2 mmol/L (3.5-4.5); SODIUM 131 mmol/L (135-145); TOTAL PROTEIN 6.4 g/dL (6.4-8.9)
[2024-03-27 09:37] LABS: THYROID STIMULATING HORMONE 1.21 uIU/mL (0.34-5.60)
[2024-03-27 09:44] LABS: CK- CREATINE KINASE 1386 IU/L (30-223); SALICYLATE < 1.5 mg/dL
[2024-03-27 09:45] LABS: ACETAMINOPHEN < 0.1 ug/mL
[2024-03-27] MEDS: PHENobarbital 65 MG/ML VIAL IM STA (10:00)
[2024-03-27] MEDS: HYDROmorphone 1 MG/ML CARPUJECT IVP STA (13:25)
[2024-03-27] MEDS: MAGNESIUM SULFATE 2 GRAM 2 GM/50 ML BAG IV ONE (13:25)
[2024-03-27 14:09] LABS: BILIRUBIN,URINE NEGATIVE (NEGATIVE); GLUCOSE, URINE (UA) NEGATIVE (NEGATIVE); KETONES,URINE (UA) NEGATIVE (NEGATIVE); LEUKOCYTE ESTERASE, URINE NEGATIVE (NEGATIVE); NITRITE,URINE NEGATIVE (NEGATIVE); OCCULT BLOOD,URINE NEGATIVE (NEGATIVE); PROTEIN,URINE NEGATIVE (NEGATIVE); UROBILINOGEN,URINE 0.2 (NORMAL) E.U./dL (NORMAL)
[2024-03-27 14:11] LABS: CLARITY,URINE CLEAR (CLEAR)
[2024-03-27 14:20] LABS: AMPHETAMINE SCREEN,URINE NEGATIVE (NEGATIVE); BARBITURATE SCREEN,UR NEGATIVE (NEGATIVE); BENZODIAZEPINES SCREEN, URINE POSITIVE (NEGATIVE); BUPRENORPHINE SCREEN, URINE NEGATIVE (NEGATIVE); COCAINE SCREEN URINE NEGATIVE (NEGATIVE); METHADONE SCREEN, URINE NEGATIVE (NEGATIVE); METHAMPHETAMINES SCREEN, URINE NEGATIVE (NEGATIVE); OPIATE SCREEN, URINE NEGATIVE (NEGATIVE); OXYCODONE SCREEN, URINE NEGATIVE (NEGATIVE); THC CANNABINOID SCREEN, URINE NEGATIVE (NEGATIVE); TRICYCLIC ANTIDEPRESSANT,URINE NEGATIVE (NEGATIVE)
[2024-03-27 15:18] VITALS: BP 125/91; O2SAT 99
== END 2024-03-27 16:05 | disposition home or self-care (01) ==
LOC: EDUNIT# → ED 08:45
DX: F10.930 Alcohol use, unspecified with withdrawal, uncomplicated (principal); Y90.0 Blood alcohol level of less than 20 mg/100 ml; Z79.899 Other long term (current) drug therapy; Z87.891 Personal history of nicotine dependence
CPT/HCPCS: 36415; 80053; 80143; 80179; 80306; 81003; 82077; 82550; 83690; 83735; 84443; 85025; 93005; 96361; 96365; 96372; 96375; 96376; 99284; J1170; J2060; J2560; 81001; 87086